=== PATIENT | female | born 1965 | race Caucasian/White ===

== ENCOUNTER → 2017-01-21 | Outpatient (CLI) | payer OTHER ==
[~2017-01-21] MED LIST: IRON PO; LYSI500T11 PO; METF850T2 PO; METH10TA6 PO; OMEP-110 PO; PROP50TA3 PO; TYLENOL PO
[2017-01-21 10:36] LABS: ASPARTATE AMINO TRANSFERASE 5 U/L (15-37); BLOOD UREA NITROGEN 14 mg/dL (7-18)
[2017-01-22 12:07] LABS: THYROGLOBULIN AB <1.0 IU/mL (0.0-0.9)
== END | disposition home or self-care (01) ==
LOC: STAR 09:22
PROVIDERS: ATTEND Surgery
DX: Z01.818 Encounter for other preprocedural examination (principal)
CPT/HCPCS: 36415; 80053; 84432; 85025; 86800; 93005

== ENCOUNTER 2017-02-02 06:01 | Observation (INO) | payer OTHER ==
[~2017-02-02] VITALS: Ht 157.5 cm; Wt 66.7 kg
[2017-02-02 06:16] VITALS: BP 135/94
[2017-02-02] MEDS ORDERED: MIDAZOLAM 1 MG/ML, 2ML ONE (06:19)
[2017-02-02] MEDS ORDERED: FENTANYL PF 250 MCG/5ML ONE (06:19)
[2017-02-02] MEDS ORDERED: GABAPENTIN 300 MG CAPSULE PO SCH (06:30)
[2017-02-02] MEDS ORDERED: PNEUMOCOCCAL 23 VACCINE IM-VACC ONE (06:30)
[2017-02-02] MEDS ORDERED: ACETAMINOPHEN 500 MG TABLET PO ONE (06:30)
[2017-02-02] MEDS: LACTATED RINGERS 1,000 ML IV SCH ×4 (06:46→13:34)
[2017-02-02] MEDS ORDERED: PRED20TA PO (06:49)
[2017-02-02] MEDS ORDERED: FENTANYL PF 100 MCG/2ML IV PRN (07:00)
[2017-02-02] MEDS ORDERED: hydrALAzine 20 MG/ML, 1ML IV PRN (07:00)
[2017-02-02] MEDS ORDERED: ACETAMINOPHEN 325 MG TABLET PO PRN (07:00)
[2017-02-02] MEDS ORDERED: PROMETHAZINE 25 MG/ML, 1ML IV PRN (07:00)
[2017-02-02] MEDS ORDERED: LABETALOL 5MG/ML, 20ML IV PRN (07:00)
[2017-02-02] MEDS ORDERED: METOCLOPRAMIDE 5 MG/ML, 2ML IV PRN (07:00)
[2017-02-02] MEDS ORDERED: ONDANSETRON 2MG/ML, 2ML IVPush PRN ×2 (07:00→09:30)
[2017-02-02] MEDS ORDERED: MEPERIDINE/PF 25MG/0.5ML IVPush PRN (07:00)
[2017-02-02] MEDS ORDERED: OXYcodone 5 MG/5 ML ORAL.SOL UDC PO PRN (07:00)
[2017-02-02] MEDS ORDERED: PROPOFOL 10 MG/ML, 20ML ONE (07:03)
[2017-02-02] MEDS ORDERED: ROCURONIUM 10 MG/ML ONE (07:03)
[2017-02-02] MEDS ORDERED: ONDANSETRON 2MG/ML, 2ML ONE ×2 (07:03→09:53)
[2017-02-02] MEDS ORDERED: SUCCINYLCHOLINE 20 MG/ML, 10ML ONE (07:03)
[2017-02-02 07:04] LABS: HCG UR OBC PASS
[2017-02-02] MEDS ORDERED: DIPHENHYDRAMINE 50 MG/ML, 1ML IV PRN (09:30)
[2017-02-02] MEDS ORDERED: DIPHENHYDRAMINE 25 MG CAPSULE PO PRN (09:30)
[2017-02-02] MEDS ORDERED: OXYcodone/APAP 5/325MG TABLET PO PRN (09:30)
[2017-02-02] MEDS ORDERED: HYDROmorphone 1 MG/ML, 1ML IV PRN (09:30)
[2017-02-02] MEDS ORDERED: HYDROmorphone 2 MG/ML, 1ML ONE (09:53)
[2017-02-02] MEDS: HYDROmorphone 1 MG/ML, 1ML IV PRN ×2 (09:59→10:10)
[2017-02-02 10:55] VITALS: BP 144/88
[2017-02-02 12:29] VITALS: BP 143/84
[2017-02-02] MEDS ORDERED: INSULIN REGULAR 100 UNITS/ML, 3ML VIAL SQ-INSULIN ONE (13:00)
[2017-02-02] MEDS: POTASSIUM CHLORIDE 20 MEQ in LACTATED RINGERS 1,000 ML IV SCH ×2 (13:33→21:00)
[2017-02-02 20:05] VITALS: BP 121/87
[2017-02-02] MEDS: metFORMIN 850 MG TABLET PO SCH (21:30)
[2017-02-02 23:41] VITALS: BP 117/76
[2017-02-03] MEDS ORDERED: CALCIUM CARBONATE 500 MG TAB.CHEW PO PRN (02:30)
[2017-02-03 03:54] VITALS: BP 111/76
[2017-02-03] MEDS: POTASSIUM CHLORIDE 20 MEQ in LACTATED RINGERS 1,000 ML IV SCH ×2 (04:15→11:32)
[2017-02-03] MEDS ORDERED: LEVOTHYROXINE 112 MCG TABLET PO SCH (06:00)
[2017-02-03] MEDS ORDERED: CALC0.5C PO (07:15)
[2017-02-03] MEDS ORDERED: CALC200T24 PO (07:15)
[2017-02-03] MEDS: CALCIUM CARBONATE 500 MG TAB.CHEW PO SCH ×3 (07:29→16:18)
[2017-02-03] MEDS ORDERED: PNEUMOCOCCAL 23 VACCINE IM-VACC ONE (08:00)
[2017-02-03 08:19] VITALS: BP 112/74
[2017-02-03] MEDS ORDERED: CALCITRIOL 0.5 MCG CAPSULE PO SCH (09:00)
[2017-02-03] MEDS ORDERED: OMEPRAZOLE 20 MG CAPSULE.DR PO SCH (09:00)
[2017-02-03] MEDS: metFORMIN 850 MG TABLET PO SCH (09:41)
[2017-02-03 13:44] VITALS: BP 132/81
[2017-02-03 15:47] VITALS: BP 132/81
[2017-02-03] MEDS ORDERED: LEVO112T2 PO (16:26)
[2017-02-03] MEDS ORDERED: PRED10TA PO (16:29)
[2017-02-03] MEDS ORDERED: OXYC-302 PO (16:30)
== END 2017-02-03 16:50 | disposition home or self-care (01) ==
LOC: OUT 06:01 → ORIP 09:16 → 4NOR 10:58 → DCLOUNGE 02-03 16:23
PROVIDERS: ADMIT Surgery; ATTEND Surgery
DX: E05.20 Thyrotoxicosis with toxic multinodular goiter without thyrotoxic crisis or storm (principal); D44.9 Neoplasm of uncertain behavior of unspecified endocrine gland; E04.1 Nontoxic single thyroid nodule; E11.9 Type 2 diabetes mellitus without complications; K21.9 Gastro-esophageal reflux disease without esophagitis; M54.9 Dorsalgia, unspecified; R00.2 Palpitations; F41.9 Anxiety disorder, unspecified; E78.00 Pure hypercholesterolemia, unspecified; Z23 Encounter for immunization; Z87.891 Personal history of nicotine dependence
CPT/HCPCS: 36415; 60240; 81025; 82040; 82310; 82962; 88307; 90471; 90732; 96372; 96374; C1760; G0378; J0330; J1170; J1720; J1815; J2250; J2405; J2704; J3010; J3480; J7120; J7512; J1200

== ENCOUNTER → 2018-10-13 | Outpatient (CLI) | payer OTHER ==
[~2018-10-13] MED LIST changes: +CALC0.5C9 PO; +CALC200T24 PO; +LEVO112T2 PO; -LYSI500T11 PO; +LYSI500T25 PO; +METF850T10 PO; -METF850T2 PO; +OXYC-302 PO; +PRED10TA PO; +PRED20TA PO
== END | disposition home or self-care (01) ==
LOC: CFH 10:13
PROVIDERS: ATTEND Family Medicine
DX: Z12.31 Encounter for screening mammogram for malignant neoplasm of breast (principal)
CPT/HCPCS: 77063; 77067

== ENCOUNTER → 2019-11-01 | Outpatient (CLI) | payer BC | END | disposition home or self-care (01) | LOC: CFH 07:08 | PROVIDERS: ATTEND Family Medicine | DX: Z12.31 Encounter for screening mammogram for malignant neoplasm of breast (principal); N64.89 Other specified disorders of breast | CPT/HCPCS: 77063; 77067 ==

== ENCOUNTER 2020-08-11 16:13 | Emergency (ER) | payer BC, OTHER ==
[~2020-08-11] VITALS: Ht 157.5 cm; Wt 71.1 kg
--- NOTE | 2020-08-11 16:47 | NUR ---
PT C/O FEELING WEAK AND SOB X 3 WEEKS. PT WENT TO 08/01 AND WAS SWABBED FOR COVID, RESULTS NEGATIVE. PT STATES SHE IS STILL FEELING SOB WITH EXERTION AND OCCASIONAL DRY COUGH.
[2020-08-11 17:27] VITALS: BP 123/81
[2020-08-11 17:42] LABS: BASOPHILS % (AUTO) 1 % (0-1); EOSINOPHILS % (AUTO) 1 % (1-7); LYMPHOCYTES % (AUTO) 17 % (22-44); MEAN CORPUSCULAR HEMOGLOBIN 30.5 pg (27.0-34.8); MEAN CORPUSCULAR HGB CONC 34.3 g/dL (32.4-35.8); MEAN PLATELET VOLUME 6.1 fL (7.4-10.4); MONOCYTES % (AUTO) 7 % (2-9); NEUTROPHILS % (AUTO) 74 % (42-75); PLATELET COUNT 558 x10^3/uL (130-400); RED BLOOD COUNT 3.86 x10^6/uL (3.82-5.3); RED CELL DISTRIBUTION WIDTH 12.8 % (9.6-15.2)
[2020-08-11 17:49] LABS: ALANINE AMINOTRANSFERASE 30 U/L (12-78); ALBUMIN 2.9 g/dL (3.4-5.0); ANION GAP 5 mmol/L (5-15); CALCIUM 7.6 mg/dL (8.5-10.1); CHLORIDE 100 mmol/L (98-107); CREATININE 0.81 mg/dL (0.55-1.02)
[2020-08-11 17:53] LABS: ALKALINE PHOSPHATASE 133 U/L (45-117); BILIRUBIN,TOTAL 0.7 mg/dL (0.2-1.0); TROPONIN I < 0.015 ng/mL (0.000-0.045)
[2020-08-11 18:02] LABS: MD SCAN
== END 2020-08-11 18:53 | disposition home or self-care (01) ==
LOC: ED 16:56
DX: J06.9 Acute upper respiratory infection, unspecified (principal); Z20.828 Contact with and (suspected) exposure to other viral communicable diseases; R00.0 Tachycardia, unspecified; R06.02 Shortness of breath
CPT/HCPCS: 36415; 71045; 80053; 83605; 83880; 84484; 85025; 87635; 93005; 99285

== ENCOUNTER 2021-02-03 07:19 | Emergency (ER) | payer OTHER ==
[~2021-02-03] VITALS: Ht 157.5 cm; Wt 72.5 kg
[~2021-02-03 07:19] MED LIST changes: -OXYC-302 PO; +OXYC1TAB14 PO
[2021-02-03 07:28] VITALS: BP 145/98
[2021-02-03] MEDS ORDERED: KETOROLAC 30 MG/1 ML ONE (08:22)
[2021-02-03] MEDS ORDERED: KETOROLAC 30 MG/1 ML IM ONE (08:30)
== END 2021-02-03 10:20 | disposition home or self-care (01) ==
LOC: ED 09:59
DX: S16.1XXA Strain of muscle, fascia and tendon at neck level, initial encounter (principal); S40.012A Contusion of left shoulder, initial encounter; S80.02XA Contusion of left knee, initial encounter; E11.9 Type 2 diabetes mellitus without complications; W01.0XXA Fall on same level from slipping, tripping and stumbling without subsequent striking against object, initial encounter; Y93.01 Activity, walking, marching and hiking; Y92.69 Other specified industrial and construction area as the place of occurrence of the external cause; Y99.8 Other external cause status
CPT/HCPCS: 72125; 73030; 73564; 96372; 99284; J1885